=== PATIENT | female | born 1975 | race African-American/Black ===

== ENCOUNTER 2019-03-18 23:34 | Emergency (ER) | payer OTHER ==
[~2019-03-18] VITALS: Ht 162.6 cm; Wt 68.0 kg
[2019-03-18 23:37] VITALS: BP 139/95
[2019-03-18] MEDS ORDERED: TYLENOL EXTRA500 MG PO (23:41)
[2019-03-19] MEDS ORDERED: TRUVADA 200 MG1 EACH PO (14:05)
[2019-03-19] MEDS ORDERED: ISENTRESS400 MG PO (14:05)
[2019-03-20 06:08] LABS: HBsAG-EMPLOYEE EXPOSURE Negative (Negative); HCV AB-EMPLOYEE EXPOSURE <0.1 (0.0-0.9)
== END 2019-03-19 00:10 | disposition home or self-care (01) ==
LOC: ER 23:34
PROVIDERS: Emergency Medicine
DX: M79.645 Pain in left finger(s) (principal); W46.1XXA Contact with contaminated hypodermic needle, initial encounter; Y93.89 Activity, other specified; Y92.89 Other specified places as the place of occurrence of the external cause; Y99.8 Other external cause status

== ENCOUNTER 2019-03-19 12:41 | Emergency (ER) | payer OTHER ==
[~2019-03-19] VITALS: Ht 162.6 cm; Wt 68.0 kg
[~2019-03-19 12:41] MED LIST: TYLENOL EXTRA500 MG PO
[2019-03-19 12:49] VITALS: BP 136/90
[2019-03-19] MEDS ORDERED: ISENTRESS400 MG PO (14:05)
[2019-03-19] MEDS ORDERED: TRUVADA 200 MG1 EACH PO (14:05)
== END 2019-03-19 14:20 | disposition home or self-care (01) ==
LOC: ER 12:41
DX: S60.949A Unspecified superficial injury of unspecified finger, initial encounter (principal); W46.1XXA Contact with contaminated hypodermic needle, initial encounter; Y92.89 Other specified places as the place of occurrence of the external cause; Y99.0 Civilian activity done for income or pay; Y99.8 Other external cause status